=== PATIENT | female | born 1965 | race Caucasian/White ===

== ENCOUNTER 2017-03-27 09:26 | Emergency (ER) | payer MEDICAID ==
[2017-03-27] MEDS ORDERED: traMADol 50 MG Tab PO ONE (10:28)
--- NOTE | 2017-03-27 11:51 | EDM.PDOC ---
ED HPI GENERAL MEDICAL PROBLEM - General Chief Complaint: Lower Extremity Injury/Pain Stated Complaint: L KNEE PAIN Time Seen by Provider: 03/27/17 10:27 Source of Information: Reports: Patient History Limitations: Reports: No Limitations - History of Present Illness INITIAL COMMENTS - FREE TEXT/NARRATIVE: This patient comes in complaining of left knee pain. She has some chronic left knee pain and supposed to have some surgery to the left knee as soon as she loses some weight but that just hasn't happened yet. Today she was getting out of car and she fell. She complains of a lot of pain all over the left knee. Sheets has been able to walk since the injury. She does have crutches at home. She's not taking any pain medications now but has taken tramadol in the past. She is allergic to Tylenol. Left Knee Pain Score (Numeric/FACES): 10 - Related Data Allergies Allergy/AdvReac Type Severity Reaction Status Date / Time acetaminophen [From Tylenol] Allergy Facial Verified 03/27/17 10:03 Swelling bee venom protein (honey bee) Allergy Cannot Verified 03/27/17 10:25 Remember codeine Allergy Cannot Verified 03/27/17 10:25 Remember diphenhydramine Allergy Cannot Verified 03/27/17 10:25 Remember fluoxetine Allergy Facial Verified 03/27/17 10:25 Swelling lurasidone Allergy Cannot Verified 03/27/17 10:25 Remember trazamine Allergy Cannot Uncoded 03/27/17 10:25 Remember Home Meds: Home Meds Albuterol Sulfate 1 dose INH Q4H PRN 03/27/17 [History] Albuterol Sulfate [Ventolin Hfa] 2 puff INH Q6H PRN 03/27/17 [History] Budesonide/Formoterol Fumarate [Symbicort 160-4.5 Mcg Inhaler] 2 puff IH BID [History] EPINEPHrine [Epinephrine] 1 dose SUBCUT ASDIRECTED 03/27/17 [History] Ergocalciferol (Vitamin D2) [Vitamin D2] 1 cap PO DAILY 03/27/17 [History] Fish Oil/[place]-3 Fatty Acids [Fish Oil 1,000 MG] 2 cap PO DAILY 03/27/17 [ History] Fluocinonide [Lidex 0.05% Oint] 1 applic TOP ASDIRECTED 03/27/17 [History] Fluticasone Propionate [Flonase] 16 gm NS BID 03/27/17 [History] Furosemide [Lasix] 1 tab PO DAILY 03/27/17 [History] HYDROmorphone [Dilaudid] 1 - 2 tab PO Q4H PRN 03/27/17 [History] Ibuprofen 1 tab PO Q6H PRN 03/27/17 [History] Ketoconazole 1 applic TOP DAILY 03/27/17 [History] Montelukast [Singulair] 1 tab PO DAILY 03/27/17 [History] Nystatin [Nystatin Crm] 1 dose TOP BID 03/27/17 [History] Ondansetron [Zofran] 1 tab PO Q6H 03/27/17 [History] Polyethylene Glycol 3350 [MiraLAX] 1 dose PO ASDIRECTED 03/27/17 [History] Rosuvastatin [Crestor] 1 tab PO BEDTIME 03/27/17 [History] Tiotropium [Spiriva HandiHaler] 1 dose INH DAILY 03/27/17 [History] Topiramate [Topamax] 200 mg PO BID 03/27/17 [History] Venlafaxine HCl [Venlafaxine ER] 2 cap PO DAILY 03/27/17 [History] carBAMazepine [TEGretol XR] 3 tab PO BID 03/27/17 [History] hydrOXYzine HCl [hydrOXYzine] 2 tab PO BID PRN 03/27/17 [History] metFORMIN [Glucophage] 1 tab PO DAILY 03/27/17 [History] predniSONE [Prednisone] 1 tab PO ASDIRECTED 03/27/17 [History] traZODone 100 mg PO BEDTIME 03/27/17 [History] Past Medical History Cardiovascular History: Reports: High Cholesterol, Hypertension Respiratory History: Reports: Asthma, COPD, Pneumonia, Recurrent, Sleep Apnea, SOB Gastrointestinal History: Reports: Bowel Obstruction, Cholelithiasis, Chronic Constipation, Chronic Diarrhea Genitourinary History: Reports: Renal Calculus, UTI, Recurrent Musculoskeletal History: Reports: Fracture, Other (See Below) Other Musculoskeletal History: left knee pain-waiting for surgery. Neurological History: Reports: Seizure Psychiatric History: Reports: Anxiety, Depression, Psych Hospitalization(s), Suicide Attempt, Suicidal Ideation - Past Surgical History HEENT Surgical History: Reports: Oral Surgery, Tonsillectomy GI Surgical History: Reports: Appendectomy, Cholecystectomy Social & Family History - Tobacco Use Smoking Status *Q: Heavy Tobacco Smoker Years of Tobacco use: 30 Packs/Tins Daily: 1 - Recreational Drug Use Recreational Drug Use: No Review of Systems - Review of Systems Review Of Systems: ROS reveals no pertinent complaints other than HPI. ED EXAM, GENERAL - Physical Exam Exam: See Below Exam Limited By: No Limitations General Appearance: Alert, No Apparent Distress, Obese Extremities: Other (The left knee is slightly swollen with some loss of landmarks. Palpation shows there probably is some effusion palpable in the suprapatellar area and infrapatellar area. There is good range of motion of the knee however. There are no discrete areas of tenderness. There is no redness or warmth. Neurovascular tendon all intact to the foot and ankle.) Course - Vital Signs Last Recorded V/S: Last Vital Signs Temp 37.0 C 03/27/17 09:58 Pulse 81 03/27/17 09:58 Resp 16 03/27/17 09:58 BP 102/56 L 03/27/17 09:58 Pulse Ox 96 03/27/17 09:58 - Orders/Labs/Meds Orders: Active Orders 24 hr Category Date Time Status Knee 3V Lt [CR] Stat Exams 03/27/17 10:27 Taken Meds: Medications Discontinued Medications Generic Name Dose Route Start Last Admin Trade Name Natalie PRN Reason Stop Dose Admin Tramadol HCl 50 mg 03/27/17 10:28 03/27/17 10:57 Ultram PO 03/27/17 10:29 50 mg ONETIME ONE Administration - Radiology Interpretation Free Text/Narrative:: X-ray shows no fracture or dislocation there is a small density posteriorly I think this just is just a joint mouse and can be disregarded. There is no old EKG for comparison. - Re-Assessments/Exams Free Text/Narrative Re-Assessment/Exam: 03/27/17 11:51 This patient received 50 mg of tramadol in the ER. Has given some relief. An Cam wrap was placed on the left knee Departure - Departure Time of Disposition: 11:52 Disposition: Home, Self-Care 01 Condition: Fair Clinical Impression: Effusion, left knee - Discharge Information Referrals: PCP,None [Primary Care Provider] - Forms: ED Department Discharge Additional Instructions: There appears to be some fluid anterior left knee. It's possible this is chronic however it could also be related to the fall you had today. When there is some injury there can be some bleeding inside of the joint which will resolve by itself. Use crutches when you're up but try to stay off of your knee is much she can for the next 2 days. Elevate sure knee and apply ice. Use tramadol 50 mg one or 2 tablets 4 times a day. This medication can cause sedation and impair driving. See your Dr. if you're not getting better over the next several days. You can begin bearing weight just as soon as the knee feels better - My Orders Last 24 Hours: My Active Orders 03/27/17 10:27 Knee 3V Lt [CR] Stat - Assessment/Plan Last 24 Hours: My Active Orders 03/27/17 10:27 Knee 3V Lt [CR] Stat
--- NOTE | 2017-03-29 09:11 | CR ---
Effusion or synovitis. Advanced lateral compartment joint space narrowing. Moderate medial compartmen t joint space narrowing. No fracture. Degenerative changes patellofemoral compartment.
== END 2017-03-27 12:14 | disposition home or self-care (01) ==
LOC: JP.ED 09:26
DX: M25.462 Effusion, left knee (principal); E78.00 Pure hypercholesterolemia, unspecified; I10 Essential (primary) hypertension; J44.9 Chronic obstructive pulmonary disease, unspecified; F17.210 Nicotine dependence, cigarettes, uncomplicated; Z88.5 Allergy status to narcotic agent; Z88.8 Allergy status to other drugs, medicaments and biological substances; Z79.899 Other long term (current) drug therapy
CPT/HCPCS: 73562; 99284; A9270; 99283

== ENCOUNTER 2017-03-30 06:11 | Emergency (ER) | payer MEDICAID ==
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
== END 2017-03-30 15:30 ==
LOC: JP.ED 06:11
DX: R45.851 Suicidal ideations (principal); Z91.030 Bee allergy status; Z88.5 Allergy status to narcotic agent; Z88.8 Allergy status to other drugs, medicaments and biological substances; Z79.899 Other long term (current) drug therapy; F17.210 Nicotine dependence, cigarettes, uncomplicated
CPT/HCPCS: 36415; 80048; 80305; 81001; 84443; 85027; 99285; G0480; 99284

== ENCOUNTER 2017-08-21 20:15 | Emergency (ER) | payer MEDICAID ==
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
[2017-08-21] MEDS ORDERED: Ketorolac 60 MG/2 ML SDV IM ONE (21:19)
[2017-08-21] MEDS ORDERED: Albuterol/Ipratropium 3.0-0.5 MG/3 ML Neb Soln NEB ONE (21:28)
== END 2017-08-21 22:13 | disposition home or self-care (01) ==
LOC: JP.ED 20:15
DX: J45.909 Unspecified asthma, uncomplicated (principal); F17.210 Nicotine dependence, cigarettes, uncomplicated; I10 Essential (primary) hypertension; E78.00 Pure hypercholesterolemia, unspecified; E11.9 Type 2 diabetes mellitus without complications; E66.9 Obesity, unspecified; Z79.82 Long term (current) use of aspirin; Z79.899 Other long term (current) drug therapy; Z79.84 Long term (current) use of oral hypoglycemic drugs; Z88.8 Allergy status to other drugs, medicaments and biological substances; Z88.6 Allergy status to analgesic agent; Z88.5 Allergy status to narcotic agent; Z91.040 Latex allergy status
CPT/HCPCS: 36415; 80048; 84484; 85025; 94640; 96372; 99284; J1885; J7620

== ENCOUNTER 2017-09-10 20:18 | Emergency (ER) | payer MEDICAID ==
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
--- NOTE | 2017-09-12 09:10 | CR ---
Shoulder Comp Rt CLINICAL HISTORY: Right shoulder pain FINDINGS: There is no acute fracture or dislocation in the right shoulder. There is some degenerative spurring at the AC joint. There is some periarticular spurring at the glenoid. There are degenerativ e changes in the cervical spine. Impression: Degenerative changes described above No fracture or subluxation
== END 2017-09-10 22:40 | disposition home or self-care (01) ==
LOC: JP.ED 20:18
DX: S46.911A Strain of unspecified muscle, fascia and tendon at shoulder and upper arm level, right arm, initial encounter (principal); F17.210 Nicotine dependence, cigarettes, uncomplicated; E11.9 Type 2 diabetes mellitus without complications; I10 Essential (primary) hypertension; E78.00 Pure hypercholesterolemia, unspecified; J44.9 Chronic obstructive pulmonary disease, unspecified; Z79.84 Long term (current) use of oral hypoglycemic drugs; Z79.899 Other long term (current) drug therapy; Z79.82 Long term (current) use of aspirin; Z88.8 Allergy status to other drugs, medicaments and biological substances; Z91.030 Bee allergy status; Z88.5 Allergy status to narcotic agent; Z88.6 Allergy status to analgesic agent; X58.XXXA Exposure to other specified factors, initial encounter
CPT/HCPCS: 73030-26-RT; 73030-RT; 99284

== ENCOUNTER 2017-10-18 23:12 | Emergency (ER) | payer MEDICAID ==
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
--- NOTE | 2017-10-19 08:57 | CR ---
Knee 3V Rt CLINICAL HISTORY: Pain, injury FINDINGS: No acute fracture or dislocation is noted. There are no osseous lesions. There is some join t space narrowing. There is also patellar spurring. Impression: [id number] osteoarthritic changes No fracture
== END 2017-10-19 00:50 | disposition home or self-care (01) ==
LOC: JP.ED 23:12
DX: M23.91 Unspecified internal derangement of right knee (principal); F17.210 Nicotine dependence, cigarettes, uncomplicated; I11.0 Hypertensive heart disease with heart failure; I50.9 Heart failure, unspecified; E11.9 Type 2 diabetes mellitus without complications; J44.9 Chronic obstructive pulmonary disease, unspecified; E78.00 Pure hypercholesterolemia, unspecified; F41.9 Anxiety disorder, unspecified; F31.9 Bipolar disorder, unspecified; Z79.899 Other long term (current) drug therapy; Z79.82 Long term (current) use of aspirin; Z88.5 Allergy status to narcotic agent; Z91.030 Bee allergy status; Z88.8 Allergy status to other drugs, medicaments and biological substances; Z88.6 Allergy status to analgesic agent
CPT/HCPCS: 73562-26-RT; 73562-RT; 99284

== ENCOUNTER 2017-11-19 23:51 | Observation (INO) | payer MEDICAID ==
[~2017-11-19 23:51] MED LIST: Sodium Chloride 0.9% 1,000 ML IV SCH
[2017-11-19] MEDS ORDERED: Pantoprazole 40 MG Vial IVPUSH ONE (23:55)
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
[2017-11-20] MEDS ORDERED: Ondansetron 4 MG Tab.DIS PO PRN (02:19)
[2017-11-20] MEDS ORDERED: Nicotine 21 MG/24 Hr Patch TRDERM ONE (02:31)
[2017-11-20] MEDS ORDERED: Potassium Chloride 20 MEQ Tab.ER PO ONE (02:31)
[2017-11-20] MEDS: Sodium Chloride 0.9% 1,000 ML IV SCH ×2 (03:30→10:35)
[2017-11-20] MEDS ORDERED: Tiotropium Inhaler 18 MCG Inhalation Powder Cap Kit of 5 INH SCH ×2 (08:00→09:00)
[2017-11-20] MEDS ORDERED: metFORMIN 500 MG Tab PO SCH (08:00)
[2017-11-20] MEDS: QUEtiapine 100 MG Tab PO SCH ×2 (08:22→14:06)
[2017-11-20] MEDS: Montelukast 10 MG Tab PO SCH ×2 (08:22→08:38)
[2017-11-20] MEDS: hydrOXYzine HCl 25 MG Tab PO SCH ×2 (08:24→14:20)
[2017-11-20] MEDS: metFORMIN 500 MG Tab.ER PO SCH ×2 (08:38→17:39)
[2017-11-20] MEDS ORDERED: Fluticasone Propionate Nasal Spray 16 GM Bottle NAS SCH (09:00)
[2017-11-20] MEDS ORDERED: Aspirin 81 MG Tab.EC PO SCH (09:00)
[2017-11-20] MEDS ORDERED: carBAMazepine 200 MG Tab PO SCH (09:00)
[2017-11-20] MEDS ORDERED: Rosuvastatin 10 MG Tab PO SCH (09:00)
[2017-11-20] MEDS ORDERED: Folic Acid 1 MG Tab PO SCH (09:00)
[2017-11-20] MEDS ORDERED: Furosemide 20 MG Tab PO SCH (09:00)
[2017-11-20] MEDS ORDERED: carBAMazepine 200 MG TAB.ER PO SCH (09:00)
[2017-11-20] MEDS ORDERED: ARIPiprazole 10 MG Tab PO SCH (09:00)
[2017-11-20] MEDS ORDERED: Multivitamins with Iron/Calcium/Folic Acid/Minerals Tab PO SCH (09:00)
[2017-11-20] MEDS ORDERED: Venlafaxine 75 MG Cap.ER PO SCH ×2 (09:00)
[2017-11-20] MEDS ORDERED: Topiramate 100 MG Tab PO SCH (09:00)
--- NOTE | 2017-11-20 09:02 | PCM.PN ---
- General Info Date of Service: 11/20/17 Functional Status: Reports: Pain Controlled - Review of Systems General: Denies: Fever Psychiatric: Reports: Depression. Denies: Suicidal Ideation Systems Review Comment:: There were no acute events overnight following admission. Repeat blood testing this morning showed no signs of metabolic acidosis. Vital signs have all been stable. This morning patient reports she continues to feel depressed and down but does not feel suicidal at this moment. - Patient Data Vitals - Most Recent: Last Vital Signs Temp 36.6 C 11/20/17 04:00 Pulse 72 11/20/17 08:00 Resp 24 H 11/20/17 08:00 BP 123/82 11/20/17 08:00 Pulse Ox 99 11/20/17 08:00 Weight - Most Recent: 120.202 kg I&O - Last 24 Hours: Intake & Output 11/19/17 11/20/17 11/20/17 22:59 06:59 14:59 Intake Total 180 Balance 180 Lab Results Last 24 Hours: Laboratory Results - last 24 hr 11/19/17 11/19/17 11/20/17 Range/Units 00:03 23:54 00:45 WBC 7.6 (4.5-11.0) K/uL RBC 4.78 (3.30-5.50) M/uL Hgb 13.6 (12.0-15.0) g/dL Hct 42.5 (36.0-48.0) % MCV 89 (80-98) fL MCH 29 (27-31) pg MCHC 32 (32-36) % Plt Count 187 (150-400) K/uL Neut % (Auto) 60 (36-66) % Lymph % (Auto) 30 (24-44) % Kings % (Auto) 10 H (2-6) % Eos % (Auto) 0 L (2-4) % Baso % (Auto) 0 (0-1) % VBG pH 7.317 L (7.350-7.450) Sodium 142 (140-148) mmol/L Potassium 3.4 L (3.6-5.2) mmol/L Chloride 108 (100-108) mmol/L Carbon Dioxide 26 (21-32) mmol/L Anion Gap 11.4 (5.0-14.0) mmol/L BUN 12 (7-18) mg/dL Creatinine 0.8 (0.6-1.0) mg/dL Est Cr Clr Drug Dosing 78.76 mL/min Estimated GFR (MDRD) > 60 (>60) Glucose 111 H (74-106) mg/dL Calcium 8.9 (8.5-10.1) mg/dL Total Bilirubin 0.4 (0.2-1.0) mg/dL AST 40 H (15-37) U/L ALT 50 (12-78) U/L Alkaline Phosphatase 99 (46-116) U/L Total Protein 6.8 (6.4-8.2) g/dL Albumin 3.3 L (3.4-5.0) g/dL Globulin 3.5 (2.3-3.5) g/dL Albumin/Globulin Ratio 0.9 L (1.2-2.2) Urine Color Urine Appearance Urine pH (4.5-8.0) Ur Specific [place] (1.008-1.030) Urine Protein (NEGATIVE) mg/dL Urine Glucose (UA) (NEGATIVE) mg/dL Urine Ketones (NEGATIVE) mg/dL Urine Occult Blood (NEGATIVE) Urine Nitrite (NEGATIVE) Urine Bilirubin (NEGATIVE) Urine Urobilinogen (NORMAL) mg/dL Ur Leukocyte Esterase (NEGATIVE) Urine RBC (0-5) Urine WBC (0-5) Ur Epithelial Cells Amorphous Sediment Urine Bacteria Urine Mucus Urine Other Urine Opiates Screen (NEGATIVE) Ur Oxycodone Screen (NEGATIVE) Urine Methadone Screen (NEGATIVE) Ur Propoxyphene Screen (NEGATIVE) Acetaminophen 0.0 L (10.0-30.0) ug/mL Ur Barbiturates Screen (NEGATIVE) Ur Tricyclics Screen (NEGATIVE) Ur Phencyclidine Scrn (NEGATIVE) Ur Amphetamine Screen (NEGATIVE) U Methamphetamines Scrn (NEGATIVE) Urine MDMA Screen (NEGATIVE) U Benzodiazepines Scrn (NEGATIVE) U Cocaine Metab Screen (NEGATIVE) U Marijuana (THC) Screen (NEGATIVE) 11/20/17 11/20/17 11/20/17 Range/Units 00:50 00:50 07:00 WBC (4.5-11.0) K/uL RBC (3.30-5.50) M/uL Hgb (12.0-15.0) g/dL Hct (36.0-48.0) % MCV (80-98) fL MCH (27-31) pg MCHC (32-36) % Plt Count (150-400) K/uL Neut % (Auto) (36-66) % Lymph % (Auto) (24-44) % Kings % (Auto) (2-6) % Eos % (Auto) (2-4) % Baso % (Auto) (0-1) % VBG pH (7.350-7.450) Sodium 142 (140-148) mmol/L Potassium 4.0 (3.6-5.2) mmol/L Chloride 108 (100-108) mmol/L Carbon Dioxide 27 (21-32) mmol/L Anion Gap 7.5 (5.0-14.0) mmol/L BUN 12 (7-18) mg/dL Creatinine 0.8 (0.6-1.0) mg/dL Est Cr Clr Drug Dosing TNP mL/min Estimated GFR (MDRD) > 60 (>60) Glucose 140 H (74-106) mg/dL Calcium 8.6 (8.5-10.1) mg/dL Total Bilirubin (0.2-1.0) mg/dL AST (15-37) U/L ALT (12-78) U/L Alkaline Phosphatase (46-116) U/L Total Protein (6.4-8.2) g/dL Albumin (3.4-5.0) g/dL Globulin (2.3-3.5) g/dL Albumin/Globulin Ratio (1.2-2.2) Urine Color Yellow Urine Appearance Slightly cloudy Urine pH 7.0 (4.5-8.0) Ur Specific [place] 1.010 (1.008-1.030) Urine Protein Negative (NEGATIVE) mg/dL Urine Glucose (UA) Normal (NEGATIVE) mg/dL Urine Ketones Negative (NEGATIVE) mg/dL Urine Occult Blood Negative (NEGATIVE) Urine Nitrite Negative (NEGATIVE) Urine Bilirubin Small (NEGATIVE) Urine Urobilinogen 1 (NORMAL) mg/dL Ur Leukocyte Esterase Negative (NEGATIVE) Urine RBC Not seen (0-5) Urine WBC 0-5 (0-5) Ur Epithelial Cells Few Amorphous Sediment Few Urine Bacteria Not seen Urine Mucus Few Urine Other Urine Opiates Screen Negative (NEGATIVE) Ur Oxycodone Screen Negative (NEGATIVE) Urine Methadone Screen Negative (NEGATIVE) Ur Propoxyphene Screen Negative (NEGATIVE) Acetaminophen (10.0-30.0) ug/mL Ur Barbiturates Screen Negative (NEGATIVE) Ur Tricyclics Screen Negative (NEGATIVE) Ur Phencyclidine Scrn Negative (NEGATIVE) Ur Amphetamine Screen Negative (NEGATIVE) U Methamphetamines Scrn Negative (NEGATIVE) Urine MDMA Screen Negative (NEGATIVE) U Benzodiazepines Scrn Negative (NEGATIVE) U Cocaine Metab Screen Negative (NEGATIVE) U Marijuana (THC) Screen Negative (NEGATIVE) Med Orders - Current: Current Medications Aripiprazole (Abilify) 5 mg PO DAILY [facility] Aspirin (Halfprin) 81 mg PO DAILY [facility] Last Admin: 11/20/17 08:30 Dose: 81 mg Carbamazepine (Tegretol Tab) 200 mg PO BID [facility] Fluticasone Propionate (Flonase) 0 gm ERICK BID [facility] Last Admin: 11/20/17 08:28 Dose: 1 spray Folic Acid (Folic Acid) 1 mg PO DAILY [facility] Last Admin: 11/20/17 08:22 Dose: 1 mg Furosemide (Lasix) 20 mg PO DAILY [facility] Last Admin: 11/20/17 08:30 Dose: 20 mg Hydroxyzine HCl (Atarax) 50 mg PO TID [facility] Last Admin: 11/20/17 08:24 Dose: 50 mg Sodium Chloride (Normal Saline) 1,000 mls @ 125 mls/hr IV ASDIRECTED [facility] Last Admin: 11/20/17 03:30 Dose: 125 mls/hr Metformin HCl (Glucophage Xr) 1,000 mg PO BIDMEALS [facility] Last Admin: 11/20/17 08:38 Dose: 1,000 mg Montelukast Sodium (Singulair) 10 mg PO DAILY [facility] Last Admin: 11/20/17 08:38 Dose: Not Given Multivitamins/Minerals (Thera M Plus) 1 tab PO DAILY [facility] Last Admin: 11/20/17 08:30 Dose: 1 tab Ondansetron HCl (Zofran Odt) 4 mg PO Q6H PRN PRN Reason: Nausea able to take PO Quetiapine Fumarate (Seroquel) 100 mg PO DAILY [facility] Last Admin: 11/20/17 08:22 Dose: 100 mg Rosuvastatin Calcium (Crestor) 20 mg PO DAILY [facility] Last Admin: 11/20/17 08:24 Dose: 20 mg Tiotropium [place] (Spiriva Handihaler) 18 mcg INH DAILYRT [facility] Last Admin: 11/20/17 08:25 Dose: 1 puff Topiramate (Topamax) 200 mg PO BID [facility] Last Admin: 11/20/17 08:31 Dose: 200 mg Venlafaxine HCl (Effexor Xr) 75 mg PO DAILY [facility] Discontinued Medications Sodium Chloride (Normal Saline) 1,000 mls @ 999 mls/hr IV ASDIRECTED [facility] Last Admin: 11/20/17 00:09 Dose: 999 mls/hr Metformin HCl (Glucophage) 1,000 mg PO BIDMEALS [facility] Nicotine (Habitrol) 21 mg TRDERM ONETIME ONE Stop: 11/20/17 02:32 Last Admin: 11/20/17 03:30 Dose: Not Given Pantoprazole Sodium (Protonix Iv) 40 mg IVPUSH ONETIME ONE Stop: 11/19/17 23:56 Last Admin: 11/20/17 00:09 Dose: 40 mg Potassium Chloride (Klor-Con M20) 40 meq PO ONETIME ONE Stop: 11/20/17 02:32 Last Admin: 11/20/17 03:29 Dose: 40 meq - Exam Quality Assessment: Supplemental Oxygen General: Alert, Oriented, Cooperative, No Acute Distress Lungs: Normal Respiratory Effort GI/Abdominal Exam: Soft, No Distention Extremities: No Pedal Edema Psy/Mental Status: Alert. No: Normal Affect (flat) - Problem List & Annotations (1) Suicide attempt by drug ingestion SNOMED Code(s): 79058362, 61863054 Code(s): T50.902A - POISONING BY UNSP DRUG/MEDS/BIOL SUBST, SELF-HARM, INIT Status: Acute Current Visit: Yes Qualifiers: Encounter type: initial encounter Qualified Code(s): T50.902A - Poisoning by unspecified drugs, medicaments and biological substances, intentional self- harm, initial encounter (2) Depression SNOMED Code(s): 58793257 Code(s): F32.9 - MAJOR DEPRESSIVE DISORDER, SINGLE EPISODE, UNSPECIFIED Status: Acute Current Visit: Yes Qualifiers: Depression Type: major depressive disorder Major depression recurrence: recurrent Active/Remission status: currently active Major depression episode severity: severe Psychotic features: without psychotic features Qualified Code(s): F33.2 - Major depressive disorder, recurrent severe without psychotic features (3) Diabetes mellitus type II, controlled SNOMED Code(s): 68247938 Code(s): E11.9 - TYPE 2 DIABETES MELLITUS WITHOUT COMPLICATIONS Status: Chronic Current Visit: Yes Qualifiers: Diabetes mellitus care home insulin use: without care home use Diabetes mellitus complication status: without complication Qualified Code(s): E11.9 - Type 2 diabetes mellitus without complications - Problem List Review Problem List Initiated/Reviewed/Updated: Yes - My Orders Last 24 Hours: My Active Orders 11/20/17 01:50 Resuscitation Status Routine 11/20/17 02:19 Patient Status [ADT] Routine Cardiac Monitoring [RC] CONTINUOUS Intake and Output [RC] QSHIFT Notify Provider Vital Signs [RC] ASDIRECTED Oxygen Therapy [RC] PRN Up With Assistance [RC] ASDIRECTED VTE/DVT Education [RC] Per Unit Routine Vital Signs [RC] Q2HR Ondansetron [Zofran ODT] 4 mg PO Q6H PRN Sodium Chloride 0.9% [Normal Saline] 1,000 ml IV ASDIRECTED Suicide Precautions [OM.PC] Routine 11/20/17 08:00 Tiotropium [Spiriva HandiHaler] 18 mcg INH DAILYRT 11/20/17 08:30 metFORMIN [Glucophage XR] 1,000 mg PO BIDMEALS 11/20/17 09:00 ARIPiprazole [Abilify] 5 mg PO DAILY Aspirin [Halfprin] 81 mg PO DAILY Fluticasone Propionate [Flonase] 0 gm ERICK BID Folic Acid 1 mg PO DAILY Furosemide [Lasix] 20 mg PO DAILY Montelukast [Singulair] 10 mg PO DAILY Multivitamins w-Iron/Ca/FA/Min [Thera M Plus] 1 tab PO DAILY QUEtiapine [SEROquel] 100 mg PO DAILY Rosuvastatin [Crestor] 20 mg PO DAILY Topiramate [Topamax] 200 mg PO BID Venlafaxine [Effexor XR] 75 mg PO DAILY carBAMazepine [TEGretol Tab] 200 mg PO BID hydrOXYzine HCl [Atarax] 50 mg PO TID 11/20/17 Breakfast Regular Diet [DIET] - Plan Plan:: ASSESSMENT AND PLAN - Suicide attempt by prescription drug ingestion - multiple stressors with acute decompensation after she found out that her boyfriend has been cheating on her. No evidence for metabolic acidosis from the NSAID ingestion. I'm very concerned with the event and think she probably needs inpatient psychiatric evaluation and treatment. Planning to contact the crisis team for further assistance. -Suicide precautions -Crisis team evaluation Major depression, currently active - recurrent episode. Complicated further by bipolar disorder and PTSD. Patient seems to have poor insight and poor coping as well as a poor support system. -Continue home medications -Crisis team evaluation Hypokalemia - improved with supplementation. Chronic medical conditions including diabetes, asthma - all seem to be stable and well compensated at this time. -Continue home medications Tobacco dependence - patient is interested in a nicotine patch. Maintenance issues - - DVT prophylaxis - mechanical - GI prophylaxis - patient did receive a single dose of a PPI in the emergency room - Nutrition - regular diet - [place] catheter - not indicated CODE STATUS - full code Admission justification - patient will be referred observation status for close monitoring, repeat lab testing and crisis team evaluation Disposition - I would anticipate discharge to inpatient psychiatry today Primary care physician - Josse Hernandez M.D.
--- NOTE | 2017-11-20 19:39 | PCM.DCSUM1 ---
Discharge Summary - Hospital Course Brief History: 51-year-old female with history of age or depression, bipolar disorder and previous suicide attempt who presented after ingesting 30 tablets of nabumatone in an attempt to harm herself. She was admitted for monitoring overnight and crisis team evaluation. Diagnosis: Stroke: No - Discharge Data Discharge Date: 11/20/17 Discharge Disposition: DC/Tfer to Psych Hosp/Unit 65 Condition: Stable - Discharge Diagnosis/Problem(s) (1) Suicide attempt by drug ingestion SNOMED Code(s): 97323007, [id number] ICD Code: T50.902A - POISONING BY UNSP DRUG/MEDS/BIOL SUBST, SELF-HARM, INIT Status: Acute Current Visit: Yes Qualifiers: Encounter type: initial encounter Qualified Code(s): T50.902A - Poisoning by unspecified drugs, medicaments and biological substances, intentional self- harm, initial encounter (2) Depression SNOMED Code(s): 85537306 ICD Code: F32.9 - MAJOR DEPRESSIVE DISORDER, SINGLE EPISODE, UNSPECIFIED Status: Acute Current Visit: Yes Qualifiers: Depression Type: major depressive disorder Major depression recurrence: recurrent Active/Remission status: currently active Major depression episode severity: severe Psychotic features: without psychotic features Qualified Code(s): F33.2 - Major depressive disorder, recurrent severe without psychotic features (3) Diabetes mellitus type II, controlled SNOMED Code(s): 88247407 ICD Code: E11.9 - TYPE 2 DIABETES MELLITUS WITHOUT COMPLICATIONS Status: Chronic Current Visit: Yes Qualifiers: Diabetes mellitus care home insulin use: without care home use Diabetes mellitus complication status: without complication Qualified Code(s): E11.9 - Type 2 diabetes mellitus without complications - Patient Summary/Data Hospital Course: Maribel presented to the emergency room after ingesting 30 tablets of nabumatone in an attempt to harm herself. Poison control was contacted at the time of presentation to the emergency room and they recommended admission to the hospital for hydration and repeat laboratory testing. At the time of admission the patient reported that she was not remorseful that she took the pills and had fully intended to harming herself with them. At the time of admission she had ongoing suicidal ideation. She was admitted to the intensive care unit and placed on suicide precautions. We did provide gentle IV fluids overnight. There were no acute issues overnight following admission. The morning after admission she remains very depressed. She does not express suicidal ideation the morning after admission. Repeat laboratory testing was unremarkable with no evidence for metabolic acidosis. She was evaluated by the crisis team from [facility] and they felt that inpatient psychiatric evaluation would be beneficial. I agree with their assessment and had recommended the same treatment plan. I believe this represented a serious event and the patient expressed a desire to harm herself and was not remorseful. At the time of discharge, the plan is for her to be transferred to inpatient psychiatric facility. She is in stable condition and safe for transfer at this time. She will be transferred to [facility] for psychiatric evaluation and treatment. - Patient Instructions Diet: Regular Diet as Tolerated Activity: As Tolerated Showering/Bathing: May Shower Notify Provider of: Increased Pain, Nausea and/or Vomiting - Discharge Plan *PRESCRIPTION DRUG MONITORING PROGRAM REVIEWED*: Not Applicable *COPY OF PRESCRIPTION DRUG MONITORING REPORT IN PATIENT MACEY: Not Applicable Home Medications: Home Meds Albuterol Sulfate 1 dose INH Q4H PRN 03/27/17 [History] Albuterol Sulfate [Ventolin Hfa] 2 puff INH Q6H PRN 03/27/17 [History] Ergocalciferol (Vitamin D2) [Vitamin D2] 50,000 units PO DAILY 03/27/17 [History ] Fluticasone Propionate [Flonase] 16 gm NS BID 03/27/17 [History] Furosemide [Lasix] 20 mg PO DAILY 03/27/17 [History] Ketoconazole 1 applic TOP Q72H 03/27/17 [History] Montelukast [Singulair] 10 mg PO DAILY 03/27/17 [History] Tiotropium [Spiriva HandiHaler] 1 dose INH DAILY 03/27/17 [History] Topiramate [Topamax] 200 mg PO BID 03/27/17 [History] Venlafaxine HCl [Venlafaxine ER] 300 mg PO DAILY 03/27/17 [History] hydrOXYzine HCl [hydrOXYzine] 50 mg PO TID 03/27/17 [History] Folic Acid 1 mg PO DAILY 03/30/17 [History] Multivitamin [Multivitamins] 1 tab PO DAILY 03/30/17 [History] Rosuvastatin Calcium 20 mg PO DAILY 03/30/17 [History] Aspirin [Halfprin] 81 mg PO DAILY 08/21/17 [History] QUEtiapine [SEROquel] 100 mg PO DAILY 08/21/17 [History] traZODone 150 mg PO DAILY 08/21/17 [History] Nabumetone [Relafen] 750 mg PO DAILY 10/18/17 [History] traMADol [Ultram] 50 mg PO Q4H PRN #15 tab 10/19/17 [Rx] ARIPiprazole [Abilify] 5 mg PO DAILY 11/20/17 [History] Loperamide [Imodium] 2 mg PO ASDIRECTED PRN 11/20/17 [History] carBAMazepine [Carbamazepine] 200 mg PO BID 11/20/17 [History] metFORMIN HCl [Metformin HCl ER] 1,000 mg PO BIDMEALS 11/20/17 [History] Patient Handouts: Major Depressive Disorder, Adult Referrals: PCP,None [Primary Care Provider] - - Discharge Summary/Plan Comment DC Time >30 min.: Yes (45 - [facility] - Patient Data Vitals - Most Recent: Last Vital Signs Temp 36.5 C 11/20/17 16:00 Pulse 68 11/20/17 18:00 Resp 22 H 11/20/17 18:00 BP 142/83 H 11/20/17 18:00 Pulse Ox 96 11/20/17 18:00 Weight - Most Recent: 120.202 kg I&O - Last 24 hours: Intake & Output 11/20/17 11/20/17 11/20/17 06:59 14:59 22:59 Intake Total 180 360 240 Output Total 400 1200 Balance 180 -40 -960 Lab Results - Last 24 hrs: Laboratory Results - last 24 hr 11/19/17 11/19/17 11/20/17 Range/Units 00:03 23:54 00:45 WBC 7.6 (4.5-11.0) K/uL RBC 4.78 (3.30-5.50) M/uL Hgb 13.6 (12.0-15.0) g/dL Hct 42.5 (36.0-48.0) % MCV 89 (80-98) fL MCH 29 (27-31) pg MCHC 32 (32-36) % Plt Count 187 (150-400) K/uL Neut % (Auto) 60 (36-66) % Lymph % (Auto) 30 (24-44) % [place] % (Auto) 10 H (2-6) % Eos % (Auto) 0 L (2-4) % Baso % (Auto) 0 (0-1) % VBG pH 7.317 L (7.350-7.450) Sodium 142 (140-148) mmol/L Potassium 3.4 L (3.6-5.2) mmol/L Chloride 108 (100-108) mmol/L Carbon Dioxide 26 (21-32) mmol/L Anion Gap 11.4 (5.0-14.0) mmol/L BUN 12 (7-18) mg/dL Creatinine 0.8 (0.6-1.0) mg/dL Est Cr Clr Drug Dosing 78.76 mL/min Estimated GFR (MDRD) > 60 (>60) Glucose 111 H (74-106) mg/dL Calcium 8.9 (8.5-10.1) mg/dL Total Bilirubin 0.4 (0.2-1.0) mg/dL AST 40 H (15-37) U/L ALT 50 (12-78) U/L Alkaline Phosphatase 99 (46-116) U/L Total Protein 6.8 (6.4-8.2) g/dL Albumin 3.3 L (3.4-5.0) g/dL Globulin 3.5 (2.3-3.5) g/dL Albumin/Globulin Ratio 0.9 L (1.2-2.2) Urine Color Urine Appearance Urine pH (4.5-8.0) Ur Specific [place] (1.008-1.030) Urine Protein (NEGATIVE) mg/dL Urine Glucose (UA) (NEGATIVE) mg/dL Urine Ketones (NEGATIVE) mg/dL Urine Occult Blood (NEGATIVE) Urine Nitrite (NEGATIVE) Urine Bilirubin (NEGATIVE) Urine Urobilinogen (NORMAL) mg/dL Ur Leukocyte Esterase (NEGATIVE) Urine RBC (0-5) Urine WBC (0-5) Ur Epithelial Cells Amorphous Sediment Urine Bacteria Urine Mucus Urine Other Urine Opiates Screen (NEGATIVE) Ur Oxycodone Screen (NEGATIVE) Urine Methadone Screen (NEGATIVE) Ur Propoxyphene Screen (NEGATIVE) Acetaminophen 0.0 L (10.0-30.0) ug/mL Ur Barbiturates Screen (NEGATIVE) Ur Tricyclics Screen (NEGATIVE) Ur Phencyclidine Scrn (NEGATIVE) Ur Amphetamine Screen (NEGATIVE) U Methamphetamines Scrn (NEGATIVE) Urine MDMA Screen (NEGATIVE) U Benzodiazepines Scrn (NEGATIVE) U Cocaine Metab Screen (NEGATIVE) U Marijuana (THC) Screen (NEGATIVE) 11/20/17 11/20/17 11/20/17 Range/Units 00:50 00:50 07:00 WBC (4.5-11.0) K/uL RBC (3.30-5.50) M/uL Hgb (12.0-15.0) g/dL Hct (36.0-48.0) % MCV (80-98) fL MCH (27-31) pg MCHC (32-36) % Plt Count (150-400) K/uL Neut % (Auto) (36-66) % Lymph % (Auto) (24-44) % [place] % (Auto) (2-6) % Eos % (Auto) (2-4) % Baso % (Auto) (0-1) % VBG pH (7.350-7.450) Sodium 142 (140-148) mmol/L Potassium 4.0 (3.6-5.2) mmol/L Chloride 108 (100-108) mmol/L Carbon Dioxide 27 (21-32) mmol/L Anion Gap 7.5 (5.0-14.0) mmol/L BUN 12 (7-18) mg/dL Creatinine 0.8 (0.6-1.0) mg/dL Est Cr Clr Drug Dosing TNP mL/min Estimated GFR (MDRD) > 60 (>60) Glucose 140 H (74-106) mg/dL Calcium 8.6 (8.5-10.1) mg/dL Total Bilirubin (0.2-1.0) mg/dL AST (15-37) U/L ALT (12-78) U/L Alkaline Phosphatase (46-116) U/L Total Protein (6.4-8.2) g/dL Albumin (3.4-5.0) g/dL Globulin (2.3-3.5) g/dL Albumin/Globulin Ratio (1.2-2.2) Urine Color Yellow Urine Appearance Slightly cloudy Urine pH 7.0 (4.5-8.0) Ur Specific [place] 1.010 (1.008-1.030) Urine Protein Negative (NEGATIVE) mg/dL Urine Glucose (UA) Normal (NEGATIVE) mg/dL Urine Ketones Negative (NEGATIVE) mg/dL Urine Occult Blood Negative (NEGATIVE) Urine Nitrite Negative (NEGATIVE) Urine Bilirubin Small (NEGATIVE) Urine Urobilinogen 1 (NORMAL) mg/dL Ur Leukocyte Esterase Negative (NEGATIVE) Urine RBC Not seen (0-5) Urine WBC 0-5 (0-5) Ur Epithelial Cells Few Amorphous Sediment Few Urine Bacteria Not seen Urine Mucus Few Urine Other Urine Opiates Screen Negative (NEGATIVE) Ur Oxycodone Screen Negative (NEGATIVE) Urine Methadone Screen Negative (NEGATIVE) Ur Propoxyphene Screen Negative (NEGATIVE) Acetaminophen (10.0-30.0) ug/mL Ur Barbiturates Screen Negative (NEGATIVE) Ur Tricyclics Screen Negative (NEGATIVE) Ur Phencyclidine Scrn Negative (NEGATIVE) Ur Amphetamine Screen Negative (NEGATIVE) U Methamphetamines Scrn Negative (NEGATIVE) Urine MDMA Screen Negative (NEGATIVE) U Benzodiazepines Scrn Negative (NEGATIVE) U Cocaine Metab Screen Negative (NEGATIVE) U Marijuana (THC) Screen Negative (NEGATIVE) Med Orders - Current: Current Medications Aripiprazole (Abilify) 5 mg PO DAILY [facility] Last Admin: 11/20/17 09:00 Dose: 5 mg Aspirin (Halfprin) 81 mg PO DAILY [facility] Last Admin: 11/20/17 08:30 Dose: 81 mg Carbamazepine (Tegretol Tab) 200 mg PO BID [facility] Last Admin: 11/20/17 09:00 Dose: 200 mg Fluticasone Propionate (Flonase) 0 gm ERICK BID [facility] Last Admin: 11/20/17 08:28 Dose: 1 spray Folic Acid (Folic Acid) 1 mg PO DAILY [facility] Last Admin: 11/20/17 08:22 Dose: 1 mg Furosemide (Lasix) 20 mg PO DAILY [facility] Last Admin: 11/20/17 08:30 Dose: 20 mg Hydroxyzine HCl (Atarax) 50 mg PO TID [facility] Last Admin: 11/20/17 14:20 Dose: 50 mg Metformin HCl (Glucophage Xr) 1,000 mg PO BIDMEALS [facility] Last Admin: 11/20/17 17:39 Dose: 1,000 mg Montelukast Sodium (Singulair) 10 mg PO DAILY [facility] Last Admin: 11/20/17 08:38 Dose: Not Given Multivitamins/Minerals (Thera M Plus) 1 tab PO DAILY [facility] Last Admin: 11/20/17 08:30 Dose: 1 tab Ondansetron HCl (Zofran Odt) 4 mg PO Q6H PRN PRN Reason: Nausea able to take PO Quetiapine Fumarate (Seroquel) 100 mg PO BEDTIME [facility] Rosuvastatin Calcium (Crestor) 20 mg PO DAILY [facility] Last Admin: 11/20/17 08:24 Dose: 20 mg Tiotropium Tamiment (Spiriva Handihaler) 18 mcg INH DAILYRT [facility] Last Admin: 11/20/17 08:25 Dose: 1 puff Topiramate (Topamax) 200 mg PO BID [facility] Last Admin: 11/20/17 08:31 Dose: 200 mg Venlafaxine HCl (Effexor Xr) 75 mg PO DAILY [facility] Last Admin: 11/20/17 09:00 Dose: 75 mg Discontinued Medications Sodium Chloride (Normal Saline) 1,000 mls @ 999 mls/hr IV ASDIRECTED [facility] Last Admin: 11/20/17 00:09 Dose: 999 mls/hr Sodium Chloride (Normal Saline) 1,000 mls @ 125 mls/hr IV ASDIRECTED [facility] Last Admin: 11/20/17 10:35 Dose: 125 mls/hr Metformin HCl (Glucophage) 1,000 mg PO BIDMEALS [facility] Nicotine (Habitrol) 21 mg TRDERM ONETIME ONE Stop: 11/20/17 02:32 Last Admin: 11/20/17 03:30 Dose: Not Given Pantoprazole Sodium (Protonix Iv) 40 mg IVPUSH ONETIME ONE Stop: 11/19/17 23:56 Last Admin: 11/20/17 00:09 Dose: 40 mg Potassium Chloride (Klor-Con M20) 40 meq PO ONETIME ONE Stop: 11/20/17 02:32 Last Admin: 11/20/17 03:29 Dose: 40 meq Quetiapine Fumarate (Seroquel) 100 mg PO DAILY [facility] Stop: 11/20/17 18:00 Last Admin: 11/20/17 14:06 Dose: Not Given - Exam Quality Assessment: Denies: Supplemental Oxygen General: Reports: Alert, Oriented, Cooperative, No Acute Distress Lungs: Reports: Normal Respiratory Effort Cardiovascular: Reports: Regular Rate, Regular Rhythm GI/Abdominal Exam: Soft, No Distention Extremities: No Pedal Edema Psy/Mental Status: Reports: Alert, Depressed
[2017-11-20] MEDS ORDERED: QUEtiapine 100 MG Tab PO SCH (21:00)
== END 2017-11-20 21:00 ==
LOC: JP.ED 23:51 → JP.ICU 11-20 01:47
PROVIDERS: ADMIT Internal Medicine; ATTEND Internal Medicine
DX: T39.392A Poisoning by other nonsteroidal anti-inflammatory drugs [NSAID], intentional self-harm, initial encounter (principal); E11.9 Type 2 diabetes mellitus without complications; F33.2 Major depressive disorder, recurrent severe without psychotic features; I11.0 Hypertensive heart disease with heart failure; I50.9 Heart failure, unspecified; E78.00 Pure hypercholesterolemia, unspecified; J44.9 Chronic obstructive pulmonary disease, unspecified; G47.30 Sleep apnea, unspecified; K59.09 Other constipation; F41.9 Anxiety disorder, unspecified; F33.9 Major depressive disorder, recurrent, unspecified; F90.9 Attention-deficit hyperactivity disorder, unspecified type; E66.9 Obesity, unspecified; Z68.41 Body mass index [BMI] 40.0-44.9, adult; E55.9 Vitamin D deficiency, unspecified; F17.210 Nicotine dependence, cigarettes, uncomplicated; E87.6 Hypokalemia; Z88.5 Allergy status to narcotic agent; Z88.8 Allergy status to other drugs, medicaments and biological substances; Z91.018 Allergy to other foods; Z79.82 Long term (current) use of aspirin; Z79.84 Long term (current) use of oral hypoglycemic drugs; Z79.899 Other long term (current) drug therapy
CPT/HCPCS: 36415; 80048; 80053; 80305; 81001; 82800; 85025; 96361; 96374; 99285; A9270; C9113; G0480; J7030